=== PATIENT | female | born 1980 | race Hispanic/Latino ===

== ENCOUNTER 2017-12-03 07:10 | Observation (INO) | payer BC ==
[2017-12-02 14:50] VITALS: BP 135/74
[2017-12-02 15:04] LABS: BASOPHILS % (AUTO) 0.9 % (0.0-5.0); EOSINOPHILS % (AUTO) 1.8 % (0.0-8.0); HEMATOCRIT 40.9 % (36-48); LYMPHOCYTES % (AUTO) 31.6 % (21.0-51.0); MEAN CORPUSCULAR HEMOGLOBIN 28.6 pg (27.0-33.0); MEAN CORPUSCULAR HGB CONC 34.9 g/dL (32.0-36.0); MEAN CORPUSCULAR VOLUME 81.9 fL (79-99); MONOCYTES % (AUTO) 6.2 % (3.0-13.0); NEUTROPHILS % (AUTO) 59.5 % (40.0-77.0); PLATELET COUNT (AUTO) 357 K/uL (130-400); WHITE BLOOD COUNT (AUTO) 8.4 K/uL (4.8-10.8)
[2017-12-02] MEDS: CEFAZOLIN SODIUM 1 GM VIAL IVP SCH (16:00)
[2017-12-03] VITALS (27 sets, daily range): BP systolic 82–139; BP diastolic 53–90
[~2017-12-03] VITALS: Ht 165.1 cm; Wt 96.2 kg
[~2017-12-03 07:10] MED LIST: CALDOLOR 800MG+NS 250ML 250 ML IV SCH; GLYCOPYRROLATE 1 MG/5 ML SYRINGE ONE; ONDANSETRON HCL 4 MG/2 ML VIAL ONE; PHENYLEPHRINE HCL 10 MG/ML 1ML VIAL IV ONE; SODIUM CHLORIDE 0.9% 10 ML VIAL ONE
[2017-12-03] MEDS ORDERED: BUPIVACAINE/PF 0.25% 50ML VIAL IJ ONE (08:29)
[2017-12-03] MEDS: LACTATED RINGERS 1000ML 1,000 ML IV SCH ×2 (08:30→23:50)
[2017-12-03] MEDS ORDERED: METHYLENE BLUE 10 MG/ML AMP ONE (08:30)
[2017-12-03] MEDS ORDERED: LIDOCAINE PF 2% 5ML ABBOJECT ONE (09:51)
[2017-12-03] MEDS ORDERED: ONDANSETRON HCL 4 MG/2 ML VIAL ONE ×2 (09:51→10:30)
[2017-12-03] MEDS ORDERED: DEXAMETHASONE SOD PHOSPHATE 10MG/ML 1ML VIAL ONE ×2 (09:51→10:30)
[2017-12-03] MEDS ORDERED: ROCURONIUM 10MG/1ML SYR 10 MG/ML ML ONE (09:52)
[2017-12-03] MEDS ORDERED: FENTANYL CITRATE PF 50 MCG/1 ML 2ML VIAL ONE ×2 (09:52→10:57)
[2017-12-03] MEDS ORDERED: MIDAZOLAM HCL 1 MG/ML 2ML VIAL ONE (09:52)
[2017-12-03] MEDS ORDERED: PROPOFOL 10 MG/ML 20ML VIAL IV ONE (09:52)
[2017-12-03] MEDS ORDERED: NEOSTIGMINE 5MG/5ML SYR IV ONE (09:52)
[2017-12-03] MEDS: CEFAZOLIN SODIUM 1 GM VIAL IVP SCH (10:00)
[2017-12-03] MEDS ORDERED: GLYCOPYRROLATE 1 MG/5 ML SYRINGE ONE (10:52)
[2017-12-03] MEDS ORDERED: ROPIVACAINE 0.5% 5MG/ML 30ML IJ ONE (11:09)
[2017-12-03] MEDS ORDERED: MEPERIDINE-PF 25 MG/ML SYG ONE ×2 (11:57→13:35)
[2017-12-03] MEDS ORDERED: SODIUM CHLORIDE 0.9% 500ML 500 ML IV SCH (13:45)
[2017-12-03] MEDS ORDERED: MEPERIDINE-PF 25 MG/ML SYG IV SCH (14:00)
[2017-12-03] MEDS ORDERED: HYDROCODONE/ACETAMINOPHEN 7.5/325 MG TAB ONE (15:28)
[2017-12-03] MEDS ORDERED: ONDANSETRON HCL MDV 20ML 2 MG/ML VIAL IVP PRN (16:45)
[2017-12-03] MEDS ORDERED: DiphenhydrAMINE HCL 50 MG/ML VIAL IV PRN (16:45)
[2017-12-03] MEDS ORDERED: HYDROCODONE/ACETAMINOPHEN 7.5/325 MG TAB PO PRN (16:45)
[2017-12-03] MEDS ORDERED: DIPHENHYDRAMINE HCL 25 MG CAPSULE PO PRN (16:45)
[2017-12-03] MEDS: LIDOCAINE 5% TOPICAL PATCH TP SCH (18:22)
[2017-12-03] MEDS: CALDOLOR 800MG+NS 250ML 250 ML IV SCH (18:24)
[2017-12-03] MEDS: HYDROCODONE/ACETAMINOPHEN 7.5/325 MG TAB PO PRN (19:47)
[2017-12-04] MEDS: CALDOLOR 800MG+NS 250ML 250 ML IV SCH (00:07)
[2017-12-04 00:14] VITALS: BP 115/67
[2017-12-04] MEDS: HYDROCODONE/ACETAMINOPHEN 7.5/325 MG TAB PO PRN ×2 (02:24→08:28)
[2017-12-04 03:53] VITALS: BP 115/67
[2017-12-04 07:40] VITALS: BP 122/77
[2017-12-04] MEDS: LIDOCAINE 5% TOPICAL PATCH TP SCH (08:27)
[2017-12-04 11:21] VITALS: BP 108/60
== END 2017-12-04 12:40 | disposition home or self-care (01) ==
LOC: DAH 07:10 → DAHIP 07:11 → WSH 15:45
PROVIDERS: ADMIT Obstetrics & Gynecology; ATTEND Obstetrics & Gynecology
DX: D25.1 Intramural leiomyoma of uterus (principal); N97.9 Female infertility, unspecified; M48.02 Spinal stenosis, cervical region; N85.7 Hematometra
CPT/HCPCS: 36415; 58350; 58561; 84702; 85025; 86850; 86900; 86901; 88305; 96365; 96366 ×2; 96375; A4344; A4510; A4600; C1765; G0168; G0378 ×29; J0690; J1100 ×2; J1741 ×3; J2001; J2175 ×2; J2250; J2405 ×2; J2704; J2710; J2795; J3010 ×2; J3490 ×2; J7030; J7040; J7120 ×2; Q9968; J2370